=== PATIENT | female | born 1985 | race Caucasian/White ===

== ENCOUNTER 2020-12-25 13:56 | Emergency (ER) | payer OTHER ==
[2020-12-25 15:18] LABS: HEMOGLOBIN 13.3 gm/dl (12.3-15.3); RED BLOOD COUNT 3.82 M/UL (4.00-5.10); WHITE BLOOD COUNT 11.8 K/UL (4.5-11.0)
[2020-12-25 15:49] LABS: BUN/CREATININE RATIO 15 (0-10)
[2020-12-25] MEDS ORDERED: OMNICEF 300 MG300 MG PO (17:35)
[2020-12-25] MEDS ORDERED: TORADOL 10 MG T10 MG PO (17:35)
[2020-12-25] MEDS ORDERED: ZOFRAN4 MG PO (17:35)
== END 2020-12-25 18:00 | disposition home or self-care (01) ==
LOC: ER1 13:56
PROVIDERS: Physician Assistant
DX: N13.6 Pyonephrosis (principal); K85.90 Acute pancreatitis without necrosis or infection, unspecified; F17.200 Nicotine dependence, unspecified, uncomplicated; Z87.442 Personal history of urinary calculi
CPT/HCPCS: 80053; 81001; 82150; 83690; 84703; 85025; 87077; 87086; 87186; 96374; 96375; 99284; J0696; J1885